=== PATIENT | male | born 1955 | race Caucasian/White ===

== ENCOUNTER 2017-10-20 15:55 | Emergency (ER) | payer BC ==
[2017-10-20 20:44] LABS: ABS Basophils 0.1 10^3/ul (0-0.2); ABS Eosinophils 0.3 10^3/ul (0-0.6); ABS Lymphocytes 1.7 10^3/ul (1.0-4.8); ABS Monocytes 0.4 10^3/ul (0-0.8); ABS Neutrophils 4.7 10^3/ul (1.5-7.7); ABS Nucleated RBC 0 10^3/ul; Eosinophil % 3.7 % (0-6); Hematocrit 45 % (42-52); Hemoglobin 15.2 g/dl (14.0-18.0); Lymphocyte % 24.7 % (25-47); Mean Corpuscular HGB Conc 34 g/dl (31-36); Mean Corpuscular Hemoglobin 31 pg (27-31); Mean Corpuscular Volume 90 fL (80-94); Mean Platelet Volume 7.2 um3 (7.4-10.4); Nucleated Red Blood Cells % 0.1; Platelet Count 256 10^3/ul (150-450); Red Blood Count 4.95 10^6/ul (4.00-5.40); Red Cell Distribution Width 14 % (10.5-15); White Blood Count 7.1 10^3/ul (3.5-10.8)
--- NOTE | 2017-10-20 21:36 | ED ---
Abdominal Pain/Male - HPI Summary HPI Summary: This is Baljit maya Cee documenting for attending physician Janina Tariq MD. This patient is a 62 year old M presenting to [facility] accompanied by his with a chief complaint of ABD pain that was worse than usual today. Pt has an umbilical hernia that he noticed 3 days ago, he states it is reducible but states it was worse today after he was carrying his grandson around. The patient rates the pain 2/10 in severity. Patient reports increased gas and constipation. Pt states he passes gas but has not had a BM today. Patient denies n/v/d, fever, and dizziness. He has not seen a doctor for this hernia and it is self diagnosed. He declined pain medication. - History of Current Complaint Chief Complaint: EDAbdPain Stated Complaint: POSSIBLE HERNIA Time Seen by Provider: 10/20/17 21:28 Hx Obtained From: Patient Onset/Duration: Still Present, Worse Since - today Timing: Constant Severity Initially: Mild Severity Currently: Mild Pain Intensity: 3 Pain Scale Used: 0-10 Numeric Location: Umbilical Radiates: No - Allergies/Home Medications Allergies/Adverse Reactions: Allergies Allergy/AdvReac Type Severity Reaction Status Date / Time erythromycin base Allergy GI Upset Verified 10/20/17 22:04 PMH/Surg Hx/FS Hx/Imm Hx Endocrine/Hematology History: Denies: Hx Anticoagulant Therapy, Hx Bone Marrow Disease, Hx Diabetes, Hx Sickle Cell Disease Cardiovascular History: Denies: Hx Atrial Fibrillation, Hx Congenital Heart Disease, Hx Deep Vein Thrombosis, Hx Embolism, Hx Hypercholesterolemia, Hx Hypotension, Hx Rheumatic Fever Respiratory History: Reports: Hx Sleep Apnea Denies: Hx Asthma, Hx Bronchopulmonary Dysplasia, Hx Chronic Bronchitis, Hx Cystic Fibrosis, Hx Pleural Effusion GI History: Reports: Hx Gastroesophageal Reflux Disease Denies: Hx Jaundice History: Denies: Hx Kidney Stones, Hx Renal Disease Musculoskeletal History: Denies: Hx Bursitis, Hx Congenital Bone Abnormalities, Hx Orthopedic Injury, Hx Osteoporosis Infectious Disease History: No Infectious Disease History: Denies: Traveled Outside the [place] in Last 30 Days - Family History Known Family History: Positive: Other - mother has colon polyps Negative: Cardiac Disease, Hypertension, Diabetes, Renal Disease, Respiratory Disease, Seizure Disorder - Social History Lives: With Family Alcohol Use: Occasionally Substance Use Type: Reports: None Smoking Status (MU): Never Smoked Tobacco Review of Systems Negative: Fever Gastrointestinal: Other - increased gas Positive: Abdominal Pain, Other - hernia and constipation . Negative: Vomiting , Diarrhea, Nausea Neurological: Negative - dizziness All Other Systems Reviewed And Are Negative: Yes Physical Exam - Summary Physical Exam Summary: VITAL SIGNS: Reviewed. GENERAL: Patient is a well-developed and nourished male who is lying comfortable in the stretcher. Patient is not in any acute respiratory distress. HEAD AND FACE: No signs of trauma. No ecchymosis, hematomas or skull depressions. No sinus tenderness. EYES: PERRLA, EOMI x 2, No injected conjunctiva, no nystagmus. EARS: Hearing grossly intact. Ear canals and tympanic membranes are within normal limits. MOUTH: Oropharynx within normal limits. NECK: Supple, trachea is midline, no adenopathy, no JVD, no carotid bruit, no c- spine tenderness, neck with full ROM. CHEST: Symmetric, no tenderness at palpation LUNGS: Clear to auscultation bilaterally. No wheezing or crackles. CVS: Regular rate and rhythm, S1 and S2 present, no murmurs or gallops appreciated. ABDOMEN: divarication of rectus muscles. Bowel sounds are normal. EXTREMITIES: FROM in all major joints, no edema, no cyanosis or clubbing. NEURO: Alert and oriented x 3. No acute neurological deficits. Speech is normal and follows commands. SKIN: Dry and warm Triage Information Reviewed: Yes Vital Signs On Initial Exam: Initial Vitals Temp Pulse Resp BP Pulse Ox 97.6 F 88 18 128/98 95 10/20/17 15:58 10/20/17 15:58 10/20/17 15:58 10/20/17 15:58 10/20/17 15:58 Vital Signs Reviewed: Yes Diagnostics - Vital Signs Vital Signs Temp Pulse Resp BP Pulse Ox 10/20/17 20:37 98.1 F 82 16 123/83 96 10/20/17 18:37 97.9 F 79 18 140/75 99 10/20/17 15:58 97.6 F 88 18 128/98 95 - Laboratory Lab Results: Lab Results 10/20/17 10/20/17 10/20/17 Range/Units 20:38 20:38 20:39 WBC 7.1 (3.5-10.8) 10^3/ul RBC 4.95 (4.00-5.40) 10^6/ul Hgb 15.2 (14.0-18.0) g/dl Hct 45 (42-52) % MCV 90 (80-94) fL MCH 31 (27-31) pg MCHC 34 (31-36) g/dl RDW 14 (10.5-15) % Plt Count 256 (150-450) 10^3/ul MPV 7.2 L (7.4-10.4) um3 Neut % (Auto) 65.8 (38-83) % Lymph % (Auto) 24.7 L (25-47) % Hopkins % (Auto) 5.0 (0-7) % Eos % (Auto) 3.7 (0-6) % Baso % (Auto) 0.8 (0-2) % Absolute Neuts (auto) 4.7 (1.5-7.7) 10^3/ul Absolute Lymphs (auto) 1.7 (1.0-4.8) 10^3/ul Absolute Monos (auto) 0.4 (0-0.8) 10^3/ul Absolute Eos (auto) 0.3 (0-0.6) 10^3/ul Absolute Basos (auto) 0.1 (0-0.2) 10^3/ul Absolute Nucleated RBC 0 10^3/ul Nucleated RBC % 0.1 Sodium 139 (135-145) mmol/L Potassium 3.6 (3.5-5.0) mmol/L Chloride 107 (101-111) mmol/L Carbon Dioxide 25 (22-32) mmol/L Anion Gap 7 (2-11) mmol/L BUN 13 (6-24) mg/dL Creatinine 1.20 H (0.67-1.17) mg/dL Est GFR ( Amer) 73.8 (>60) Est GFR (Non-Af Amer) 61.0 (>60) BUN/Creatinine Ratio 10.8 (8-20) Glucose 155 H (70-100) mg/dL Lactic Acid 2.2 H* (0.5-2.0) mmol/L Calcium 9.1 (8.6-10.3) mg/dL Total Bilirubin 0.50 (0.2-1.0) mg/dL AST 25 (13-39) U/L ALT 47 (7-52) U/L Alkaline Phosphatase 89 (34-104) U/L C-Reactive Protein 1.70 (<8.01) mg/L Total Protein 6.9 (6.4-8.9) g/dL Albumin 4.3 (3.2-5.2) g/dL Globulin 2.6 (2-4) g/dL Albumin/Globulin Ratio 1.7 (1-3) Lipase 33 (11.0-82.0) U/L Result Diagrams: 10/20/17 20:38 10/20/17 20:39 Lab Statement: Any lab studies that have been ordered have been reviewed, and results considered in the medical decision making process. - CT CT ABD/Pelvis CT Interpretation Completed By: Radiologist - no acute findings ED physician has reviewed this radiology report. Re-Evaluation - Re-Evaluation First Eval Re-Evaluation Time: 23:45 Change: Improved Comment: I discussed all the test results and discharge with the patient. He is feeling better and would like to go home. Abdominal Pain Fem Course/Dx - Course Assessment/Plan: This patient is a 62 year old M presenting to [facility] accompanied by his with a chief complaint of ABD pain that was worse than usual today. Pt has an umbilical hernia that he noticed 3 days ago, he states it is reducible but states it was worse today after he was carrying his grandson around. The patient rates the pain 2/10 in severity. Patient reports increased gas and constipation. Pt states he passes gas but has not had a BM today. Patient denies n/v/d, fever, and dizziness. He has not seen a doctor for this hernia and it is self diagnosed. He declined pain medication. CT ABD pelvis reveals, per radiologist, no acute findings. Test results with no significant abnormalities. In the ED course the patient was given I Vfluids. Patient will be discharged and follow up from PCP. The patient is agreeable with this plan. - Diagnoses Provider Diagnoses: Abdominal pain Discharge - Sign-Out/Discharge Documenting (check all that apply): Patient Departure - Discharge Plan Condition: Stable Disposition: HOME Patient Education Materials: Acute Abdominal Pain (ED) Referrals: Meliton Morrison MD [Primary Care Provider] - 2 Days Additional Instructions: RETURN TO EMERGENCY DEPARTMENT FOR ANY NEW OR WORSENING SYMPTOMS Attestation Statement Scribe Attestation: This is Baljit maya documenting for attending physician Janina Tariq MD. User Type: Provider with Scribe Provider Attestation: The documentation recorded by the scribe accurately reflects the service I personally performed and the decisions made by me.
[2017-10-20] MEDS ORDERED: NS 0.9% 1000 ML* 1,000 ML IV ONE (21:47)
[2017-10-20] MEDS ORDERED: Iohexol 300* (CONTRAST) 10 ML SDV IV ONE (21:54)
--- NOTE | 2017-10-20 23:37 | RAD ---
CLINICAL HISTORY: 62 years old, male; painful protruding umbilical hernia; recently suffered used.; Abdominal pain; Generalized; Additional info: Abd pain TECHNIQUE: Axial computed tomography images of the abdomen and pelvis with intravenous contrast. Coronal and sagittal reformatted images were created and reviewed. COMPARISON: March 05, 2010 CT lumbar sacral spine FINDINGS: Lung bases: Unremarkable. No mass. No consolidation. ABDOMEN: Liver: Unremarkable. No mass. Gallbladder and bile ducts: Unremarkable. No calcified stones. No ductal dilation. Pancreas: Unremarkable. No mass. No ductal dilation. Spleen: Unremarkable. No splenomegaly. Adrenals: Unremarkable. No mass. Kidneys and ureters: Retroaortic left renal vein. No hydronephrosis. No mass. Bladder: Unremarkable. No mass. Reproductive: Unremarkable as visualized. Stomach and bowel: Colonic diverticula without CT findings of diverticulitis. No obstruction. No mucosal thickening. Normal appendix visualized extending medial from the cecum best seen on the coronal reformatted series. Intraperitoneal space: Unremarkable. No free air. No significant fluid collection. Small fat-containing umbilical hernia without inflammatory change. Small fat-containing probable indirect LEFT inguinal hernia without inflammatory change. Vasculature: Atherosclerotic calcification. Lymph nodes: Unremarkable. No enlarged lymph nodes. Bones/joints: Degenerative changes of the lumbosacral spine with disc space narrowing and spondylolisthesis at the L4-5 level. No acute fracture. No dislocation. IMPRESSION: #. Small fat-containing umbilical hernia without inflammatory change. Small fat-containing probable indirect LEFT inguinal hernia without inflammatory change. #. Mild colonic diverticulosis without findings of acute diverticulitis. #. Normal appendix documented. #. Worsening of L4-L5 degenerative spondylosis and degenerative grade 1 anterolisthesis compared with the 2010 exam.
[2017-10-21 00:43] VITALS: BP 111/84
== END 2017-10-21 00:40 | disposition home or self-care (01) ==
LOC: ED 15:55
DX: R10.9 Unspecified abdominal pain (principal); K42.9 Umbilical hernia without obstruction or gangrene
CPT/HCPCS: 36415; 74177; 80053; 83605; 83690; 85025; 86140; 96361; 96374; 99283; Q9967